=== PATIENT | male | born 1950 | race Caucasian/White ===

== ENCOUNTER 2019-07-08 15:19 | Inpatient (IN) | payer OTHER, MEDICAID ==
[~2019-07-08] VITALS: Ht 170.2 cm; Wt 92.6 kg
[2019-07-08 15:20] VITALS: BP 154/111
[2019-07-08 20:00] VITALS: BP 158/75
--- NOTE | 2019-07-08 20:20 | NUR ---
Time: 2019 A 68 year old MALE admitted to 5E under services of MELISSA YBARRA DO. Pt. arrived via stretcher from ER. Chief complaint: EXTREMITY INJURY. CARRIE WILLARD
[2019-07-08] MEDS ORDERED: CRESTOR5 MG PO (21:06)
[2019-07-08] MEDS ORDERED: ASPIR LOW81 MG PO (21:07)
[2019-07-08] MEDS ORDERED: VITAMIN D5000 UNI1 PO (21:08)
[2019-07-08] MEDS ORDERED: VITAMIN B COMP1 EAC1 PO (21:08)
--- NOTE | 2019-07-08 21:08 | NUR ---
MEDICATIONS UPDATED PER PATIENT.
[2019-07-08 21:27] LABS: BASO # 0.1 10*3/uL (0.0-0.1); BASO % 0.3 % (0.0-1.0); EOS # 0.1 10*3/uL (0.0-0.4); EOS % 0.5 % (1.0-4.0); HEMATOCRIT 49.8 % (42.0-52.0); HEMOGLOBIN 16.4 g/dl (14.0-18.0); LYMPH # 3.3 10*3/uL (1.3-4.4); LYMPH % 22.3 % (27.0-41.0); MEAN CORPUSCULAR HGB 32.3 pg (27.0-31.0); MEAN CORPUSCULAR HGB CONC 32.9 g/dl (33.0-37.0); MEAN PLATELET VOLUME 9.1 fl (9.6-12.3); MONO % 6.9 % (3.0-9.0); NEUT # 10.3 10*3/uL (2.3-7.9); NEUT % 69.4 % (47.0-73.0); PLATELET COUNT AUTOMATED 280 10*3/uL (130-400); RED BLOOD COUNT 5.08 10*6/uL (4.50-5.90); RED CELL DISTRI WIDTH 12.5 % (0-14.5); WHITE BLOOD COUNT 14.8 10*3/uL (4.8-10.8)
[2019-07-08 21:54] LABS: BUN 14 mg/dl (7-24); CHLORIDE 106 mmol/L (98-107); CREATININE 1.13 mg/dL (0.70-1.30); POTASSIUM 3.5 mmol/L (3.5-5.1); SODIUM 141 mmol/L (136-145)
--- NOTE | 2019-07-08 22:19 | NUR ---
PATIENT REQUESTING PAIN MEDICATION FOR LEFT HIP PAIN RATED 7/10 ON 0/10 SCALE. NORCO ADMINISTERED PRESCRIBED. WILL MONITOR FOR EFFECTIVENESS.
--- NOTE | 2019-07-08 22:20 | NUR ---
IV started right antecubital with #20 protective cath after 1 attempts. Site prepped with Chloroprep. Sterile dressing applied. Patient tolerated procedure well. CARRIE WILLARD
--- NOTE | 2019-07-08 23:19 | NUR ---
PATIENT STATES THAT NORCO WAS EFFECTIVE FOR LEFT HIP PAIN, RATES 4/10 ON 0/10 SCALE AT THIS TIME. WILL MONITOR.
[2019-07-09] VITALS: BP 179/86
--- NOTE | 2019-07-09 00:15 | NUR ---
PATIENT LAYING IN BED WATCHING TV. PT HAS NO COMPLAINTS AT THIS TIME. STATES THAT PAIN IS BETTER AT THIS TIME. CALL LIGHT WITHIN REACH. WILL MONITOR.
--- NOTE | 2019-07-09 02:00 | NUR ---
PATIENT RESTING WITH EYES CLOSED. RESPIRATIONS EASY AND UNLABORED. CALL LIGHT IN REACH. WILL MONITOR.
[2019-07-09 06:33] LABS: BASO # 0.1 10*3/uL (0.0-0.1); BASO % 0.6 % (0.0-1.0); EOS # 0.3 10*3/uL (0.0-0.4); EOS % 2.1 % (1.0-4.0); HEMATOCRIT 45.9 % (42.0-52.0); HEMOGLOBIN 15.2 g/dl (14.0-18.0); LYMPH # 2.7 10*3/uL (1.3-4.4); LYMPH % 23.1 % (27.0-41.0); MEAN CELL VOLUME 97.5 fl (80.0-94.0); MEAN CORPUSCULAR HGB 32.3 pg (27.0-31.0); MEAN CORPUSCULAR HGB CONC 33.1 g/dl (33.0-37.0); MEAN PLATELET VOLUME 9.3 fl (9.6-12.3); MONO # 1.3 10*3/uL (0.1-1.0); MONO % 10.9 % (3.0-9.0); NEUT # 7.5 10*3/uL (2.3-7.9); NEUT % 62.8 % (47.0-73.0); PLATELET COUNT AUTOMATED 244 10*3/uL (130-400); RED BLOOD COUNT 4.71 10*6/uL (4.50-5.90); RED CELL DISTRI WIDTH 12.7 % (0-14.5); WHITE BLOOD COUNT 11.9 10*3/uL (4.8-10.8)
[2019-07-09 07:00] LABS: ACT PARTIAL THROMBO TIME 26.8 SECONDS (20.0-32.1); INTERNATIONAL NORM RATIO 0.9 (2.0-3.5)
[2019-07-09 07:04] LABS: ALBUMIN 3.4 gm/dl (3.1-4.5); ALKALINE PHOSPHATASE 97 U/L (45-117); BUN 15 mg/dl (7-24); CHLORIDE 110 mmol/L (98-107); CHOLESTEROL 104 mg/dL (<200); CREATININE 1.05 mg/dL (0.70-1.30); HDL CHOLESTEROL 41 mg/dl (40-60); LDL CHOLESTEROL 45 mg/dL (9-159); PHOSPHOROUS 3.1 mg/dL (2.5-4.9); SGOT/AST 16 IU/L (3-35); SGPT/ALT 25 U/L (12-78); SODIUM 142 mmol/L (136-145); TOTAL PROTEIN 7.1 gm/dL (6.4-8.2); TRIGLYCERIDES 91 mg/dl (<150); VLDL CHOLESTEROL 18 mg/dL (6-40)
[2019-07-09 08:00] VITALS: BP 145/86
--- NOTE | 2019-07-09 09:36 | NUR ---
Nursing screen received and occupational therapy referral received. Thank you. Yulia Gan OTR/L
--- NOTE | 2019-07-09 09:37 | NUR ---
PRECERT is required for SNF. STATEMENT CLERKS SUPERVISOR received notice of patient wanting to be referred to [facility]. STATEMENT CLERKS SUPERVISOR faxed referral to [facility]. Will need PT/OT Eval to complete referral. -DONYA Sykes
--- NOTE | 2019-07-09 11:00 | NUR ---
Occupational Therapy evaluation completed on 5 with full eval to follow. Precautions include left hip pain,increasing w/ ambulation, new ww use recommended,low complexity level [id number]. Recommend OT per POC for safety in ww use and ADL training w/ ww and home with home health SN,OT,PT upon d/c. Thank you. Yulia Gan OTR/l
--- NOTE | 2019-07-09 11:48 | NUR ---
PHYSICAL THERAPY Maximiliano completed moderate level of complexity [id number] recomend SNF as pt w limited ambulation with increase pain using AD however pt state he will go home and sister will assist him agreeable to Home Health and use of FWW. PT to work on tranfers, amb with AD, safety/balance with AD. Mary Corea PT
[2019-07-09 12:00] VITALS: BP 151/82
--- NOTE | 2019-07-09 13:47 | NUR ---
Geology Technician in to talk to patient. Patient states lives at HOME with [place]. There are NO steps in the home. Physician:BRITTANI GOLDMAN [facility]acy: [facility] Home health services: NONE Patient's level of ADLs: INDEPENDENT Patient has working utilities: YES DME: USES A CANE OCCASIONALLY Follow-up physician's appointment after d/c: WILL BE MADE BY HOSPITALIST NURSE DIRECTOR ON DISCHARGE Does patient want to access PORTAL?: NO Discharge plan PT LIVES AT HOME ALONE. SPOKE WITH HIM ABOUT SKILLED PLACMENT FOR REHAB AND HE IS AGREEABLE IF HE ABSOLUTELY HAS TO GO. IF HE DOES NOT NEED SNF STATES HE WOULD BE OK WITH HOME HEALTH. PICKED [facility] FOR RE[facility]AB AND [facility] FOR HOME HEALTH. STATES HE WANTS TO WAIT UNTIL HE WORKS WITH THERAPY TO DECIDE WHAT HE IS GOING TO DO. WILL CONTINUE TO FOLLOW. . ROGER WILLARD
[2019-07-09 16:00] VITALS: BP 170/91
--- NOTE | 2019-07-09 16:00 | NUR ---
REFERRAL FAXED TO [facility].
--- NOTE | 2019-07-09 16:08 | NUR ---
RECEIVED HOME HEALTH ORDER AND ORDER FOR WALKER AND SHOWER CHAIR FOR PT. WORDING FOR PROGRESS NOTED SENT TO HOSPITALIST NURSE DIRECTOR FOR WALKER TO BE COVERED. NO PROGRESS NOTE IN YET. WILL SEND REFERRAL TO [facility] PT CHOICE.
--- NOTE | 2019-07-09 16:31 | NUR ---
SCRIP FOR WHEELED WALKER AND SHOWER CHAIR FAXED TO [facility]. THEY WILL BE SENDING A NECCESITY FORM TO HOSPITALIST OFFICE TO HAVE SIGNED. THEY STATE THEY DO NOT DELIVER OVER THE WEEKEND AND HAVE NO PATHOLOGY MANAGER TONIGHT SO THEY WILL NOT BE ABLE TO DELIVER IT UNTIL NEXT WEEK. WILL CONTINUE TO FOLLOW.
--- NOTE | 2019-07-09 16:35 | NUR ---
REFERRAL FAXED TO [facility].
[2019-07-09 20:00] VITALS: BP 164/77
--- NOTE | 2019-07-09 20:44 | NUR ---
PATIENT C/O OF LEFT LEG PAIN. RATES 11/04. MEDICATED WITH NORCO. WILL CHECK EFFECTIVENESS.
--- NOTE | 2019-07-09 23:00 | NUR ---
PATIENT REQUESTING A SLEEPING PILL. NOTIFIED DR. WADDELL. 1X RESTORIL ORDERED.
--- NOTE | 2019-07-09 23:21 | NUR ---
PATIENT MEDICATED WITH 1X DOSE OF RESTORIL. WILL CHECK EFFECTIVENESS.
[2019-07-10] VITALS: BP 137/85
--- NOTE | 2019-07-10 02:30 | NUR ---
PATIENT SLEEPING. RESTORIL EFFECTIVE.
[2019-07-10 06:47] LABS: HEMATOCRIT 44.2 % (42.0-52.0); HEMOGLOBIN 14.8 g/dl (14.0-18.0); MEAN CELL VOLUME 97.1 fl (80.0-94.0); MEAN CORPUSCULAR HGB 32.5 pg (27.0-31.0); MEAN CORPUSCULAR HGB CONC 33.5 g/dl (33.0-37.0); MEAN PLATELET VOLUME 9.3 fl (9.6-12.3); PLATELET COUNT AUTOMATED 263 10*3/uL (130-400); RED BLOOD COUNT 4.55 10*6/uL (4.50-5.90); RED CELL DISTRI WIDTH 12.7 % (0-14.5); WHITE BLOOD COUNT 16.1 10*3/uL (4.8-10.8)
[2019-07-10 07:09] LABS: BUN 17 mg/dl (7-24); CHLORIDE 110 mmol/L (98-107); CREATININE 1.13 mg/dL (0.70-1.30); POTASSIUM 3.8 mmol/L (3.5-5.1); SODIUM 142 mmol/L (136-145)
[2019-07-10 08:00] VITALS: BP 150/75
[2019-07-10 08:28] LABS: PLATELET SUFFICIENCY NORMAL (NORMAL); TOTAL CELLS COUNTED 100 #CELLS
--- NOTE | 2019-07-10 12:10 | NUR ---
Discharge instructions reviewed with patient/family. Patient receptive and verbalizes understanding. Follow-up care arranged. Written instructions given to patient/family. Patient was wheeled from unit by staff member with all personal belongings accounted for. He received his prescription for walker and shower seat and was also educated to follow up with family physician one week post discharge. Patient also encouraged to take discharge instructions to visit and keep medications updated. SHANI GALVAN J
== END 2019-07-10 12:10 | disposition home health service (06) | DRG 552 ==
LOC: ED 15:19 → EDHOLD 19:00 → 5E 19:00
PROVIDERS: Internal Medicine; ADMIT Internal Medicine
DX: M48.061 Spinal stenosis, lumbar region without neurogenic claudication (principal); R65.10 Systemic inflammatory response syndrome (SIRS) of non-infectious origin without acute organ dysfunction; G95.20 Unspecified cord compression; E87.8 Other disorders of electrolyte and fluid balance, not elsewhere classified; E55.9 Vitamin D deficiency, unspecified; E78.5 Hyperlipidemia, unspecified; R26.2 Difficulty in walking, not elsewhere classified; E66.09 Other obesity due to excess calories; Z68.32 Body mass index [BMI] 32.0-32.9, adult; M19.90 Unspecified osteoarthritis, unspecified site; W19.XXXA Unspecified fall, initial encounter; Y93.89 Activity, other specified; Y92.89 Other specified places as the place of occurrence of the external cause; Y99.8 Other external cause status

== ENCOUNTER 2022-03-29 11:12 | Emergency (ER) | payer OTHER ==
[~2022-03-29] VITALS: Ht 170.1 cm; Wt 95.3 kg
[~2022-03-29 11:12] MED LIST: ASPIR LOW81 MG PO; CRESTOR5 MG PO; VITAMIN B COMP1 EAC1 PO; VITAMIN D5000 UNI1 PO
[2022-03-29 11:55] LABS: BASO # 0.1 10*3/uL (0.0-0.1); BASO % 0.4 % (0.0-1.0); EOS % 0.1 % (1.0-4.0); HEMATOCRIT 50.4 % (42.0-52.0); LYMPH % 5.6 % (27.0-41.0); MEAN CELL VOLUME 96.2 fl (80.0-94.0); MEAN CORPUSCULAR HGB 31.3 pg (27.0-31.0); MEAN CORPUSCULAR HGB CONC 32.5 g/dl (33.0-37.0); MONO # 0.9 10*3/uL (0.1-1.0); MONO % 5.1 % (3.0-9.0); NEUT # 15.5 10*3/uL (2.3-7.9); NEUT % 88.1 % (47.0-73.0); PLATELET COUNT AUTOMATED 265 10*3/uL (130-400); RED BLOOD COUNT 5.24 10*6/uL (4.50-5.90); RED CELL DISTRI WIDTH 12.7 % (0-14.5); WHITE BLOOD COUNT 17.6 10*3/uL (4.8-10.8)
[2022-03-29 11:59] LABS: BILIRUBIN Negative (Negative); BLOOD 3+ (Negative); CLARITY Turbid (Clear); COLOR Yellow (Yellow); GLUCOSE Trace (Negative); KETONE Trace (Negative); LEUKO ESTERASE Negative (Negative); NITRITE Negative (Negative); SPECIFIC GRAVITY 1.025 (1.001-1.030)
[2022-03-29 12:09] LABS: CREATININE 1.44 mg/dL (0.70-1.30); POTASSIUM 3.5 mmol/L (3.5-5.1); TOTAL PROTEIN 7.8 gm/dL (6.4-8.2)
[2022-03-29 12:12] LABS: BACTERIA 3+; CALCIUM OXALATE CRYSTALS 2+; RBC TNTC rbc/hpf (0-2)
== END 2022-03-29 14:16 | disposition short-term general hospital (02) ==
LOC: ED 11:12
PROVIDERS: Nurse Practitioner Family
DX: N13.2 Hydronephrosis with renal and ureteral calculous obstruction (principal); Z79.899 Other long term (current) drug therapy; Z79.82 Long term (current) use of aspirin; Z87.891 Personal history of nicotine dependence

== ENCOUNTER 2022-08-15 13:30 | Emergency (ER) | payer OTHER ==
[~2022-08-15] VITALS: Wt 95.7 kg
[2022-08-15] MEDS ORDERED: PREDNISONE20 M1 PO (14:29)
== END 2022-08-15 14:53 | disposition home or self-care (01) ==
LOC: ED 13:30
DX: G51.0 Bell's palsy (principal); Z79.899 Other long term (current) drug therapy; Z79.82 Long term (current) use of aspirin; Z87.891 Personal history of nicotine dependence

== ENCOUNTER 2022-08-18 10:45 | Emergency (ER) | payer OTHER ==
[~2022-08-18] VITALS: Ht 170.1 cm; Wt 95.3 kg
[~2022-08-18 10:45] MED LIST changes: +PREDNISONE20 M1 PO
[2022-08-18 11:23] LABS: BASO # 0.1 10*3/uL (0.0-0.1); BASO % 0.4 % (0.0-1.0); EOS % 0.1 % (1.0-4.0); HEMATOCRIT 47.3 % (42.0-52.0); LYMPH # 3.3 10*3/uL (1.3-4.4); LYMPH % 23.2 % (27.0-41.0); MEAN CORPUSCULAR HGB 31.4 pg (27.0-31.0); MEAN CORPUSCULAR HGB CONC 33.4 g/dl (33.0-37.0); MEAN PLATELET VOLUME 9.3 fl (9.6-12.3); MONO # 1.1 10*3/uL (0.1-1.0); MONO % 7.9 % (3.0-9.0); NEUT # 9.5 10*3/uL (2.3-7.9); NEUT % 67.4 % (47.0-73.0); PLATELET COUNT AUTOMATED 285 10*3/uL (130-400); RED BLOOD COUNT 5.03 10*6/uL (4.50-5.90); RED CELL DISTRI WIDTH 13.2 % (0-14.5); WHITE BLOOD COUNT 14.1 10*3/uL (4.8-10.8)
[2022-08-18 11:42] LABS: ALKALINE PHOSPHATASE 75 U/L (46-116); BUN 17 mg/dl (9-23); CHLORIDE 107 mmol/L (98-107); POTASSIUM 3.5 mmol/L (3.4-5.1); SGPT/ALT 21 U/L (10-49); TOTAL PROTEIN 6.7 gm/dL (6.0-8.0)
== END 2022-08-18 13:49 | disposition home or self-care (01) ==
LOC: ED 10:45
PROVIDERS: Physician Assistant
DX: G51.0 Bell's palsy (principal); Z98.890 Other specified postprocedural states; Z87.891 Personal history of nicotine dependence

== ENCOUNTER 2023-01-03 18:06 | Emergency (ER) | payer OTHER, MEDICAID ==
[~2023-01-03] VITALS: Wt 95.3 kg
[2023-01-03] MEDS ORDERED: TRAMADOL HCL50 MG PO (20:37)
== END 2023-01-03 20:30 | disposition home or self-care (01) ==
LOC: ED 18:06
DX: S05.32XA Ocular laceration without prolapse or loss of intraocular tissue, left eye, initial encounter (principal); M25.512 Pain in left shoulder; Z98.890 Other specified postprocedural states; Z87.891 Personal history of nicotine dependence; W01.10XA Fall on same level from slipping, tripping and stumbling with subsequent striking against unspecified object, initial encounter; Y93.89 Activity, other specified; Y92.89 Other specified places as the place of occurrence of the external cause; Y99.8 Other external cause status